=== PATIENT | female | born 1960 | race Caucasian/White ===

== ENCOUNTER 2017-10-20 16:02 | Emergency (ER) | payer BC ==
[2017-10-20 16:19] VITALS: BP 132/99
[2017-10-20] MEDS ORDERED: ADACEL TDaP IM ONE ×2 (16:47→16:51)
--- NOTE | 2017-10-20 16:48 | DR.GENAD ---
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 Landed on face with pain to rt face, rt ribs, rt wrist, L knee. Skin tear rt medial leg. Chief Complaint:: patient was walking aroung her fire place and she triped over a ailyn firedog causing a skin tear to her right lower leg. also land face first having right jaw pain, right rib and right wrist pain. - Source History Provided: Patient - Mode of Arrival Mode of Arrival: Wheelchair - Timing Onset of Chief Complaint: 10/20/17 PMH - PMH Past Medical History: Yes Past Medical History: Hypertension, Hypothyroidism Past Surgical History: Yes Surgical History: , Cholecystectomy, Hysterectomy - Family History History of Family Medical Conditions: No - Social History Does patient currently use any type of tobacco product: No Have you used tobacco products in the last 12 months: No Type of Tobacco Use: None Does any household member use tobacco: No Alcohol Use: Occasionally Do you use any recreational Drugs:: No Lives With: Family Lives Where: Home - infectious screening In the last 2 months have you had wt loss of >10#?: NO Have you had fever, night sweats or hemotysis?: No Have you traveled outside the country in the last 6 months?: No Isolation: Standard ROS - Review of Systems Constitutional: No Symptoms Reported Eyes: No Symptoms Reported ENTM: No Symptoms Reported, Nose Pain. negative: Loose Teeth Respiratoy: Other (rt rib pain on deep inspiration) Cardiovascular: No Symptoms Reported Gastrointestinal/Abdominal: No Symptoms Reported Genitourinary: No Symptoms Reported Neurological: No Symptoms Reported Musculoskeletal: Chest wall, Rib(s), Wrist, Knee Integumentary: Wound, Other (large C shaped lac rt leg, no active bleeding) Psychiatric: No Symptoms Reported All Other Systems: Reviewed and Negative PE - Vital Signs Vitals: Temperature 98.9 F Pulse Rate 79 Respiratory Rate 16 Blood Pressure 132/99 O2 Sat by Pulse Oximetry 96 - General Limitations: No Limitations General Appearance: Alert, In No Apparent Distress - Head Head Exam: Normal Inspection, Normocephalic - Eyes Eye exam: Normal Appearance, PERRL, EOMI, Other (tender along rt jawline. Speech clear, no palp deformity at joint ). negative: Nystagmus, Periorbital Swelling, Periorbital Tenderness - ENT ENT Exam: Other (no nasal bleeding) External Ear Exam: Normal External Inspection Nose Exam: Normal Nose Exam. negative: Nasal Deviation, Septal Hematoma, Laceration Mouth Exam: Normal Inspection. negative: Laceration Throat Exam: Normal Inspection - Neck Neck Exam: Normal Inspection, Full ROM, Trachea Midline - Chest Chest Inspection: Normal Inspection, Tenderness, Other (mid rt ribs tender) - Respiratory Respiratory Exam: Normal Lung Sounds Bilat Respiratory Exam: Bilateral Clear to Auscultation - Cardiovascular Cardiovascular Exam: Regular Rate, Normal Rhythm - Abdominal Exam Abdominal Exam: Normal Inspection, Normal Bowel Sounds, Soft. negative: Tenderness, Guarding, Rebound - Extremities Extremities Exam: Normal Inspection, Full ROM, Normal Capillary Refill, Other ( left knee, rt wrist both TTP with no palp bony deformity, both FROM. 7.5cm C shaped lac left leg, medio-lat aspect) - Neurologic Neurological Exam: Alert, Oriented X3 - Psychiatric Psychiatric Exam: Normal Affect, Normal Mood - Skin Skin Exam: Warm, Dry. negative: Intact (see above) Procedures - Laceration/Wound Repair Left Calf Wound's Depth, Shape: Superficial, Other (C shaped) Wound Explored: clean Betadine Prep?: Yes Volume Anesthetic (ccs): 4 Wound Debrided: moderate Wound Repaired With: sutures Suture Size/Type: 4:0, [place] Number of Sutures: 14 Layer Closure?: No Sterile Dressing Applied?: Yes Sling Applied?: No - Diagnosis Discharge Problem: Contusion, multiple sites, Laceration of leg - Discharge Plan Disposition: 01 HOME, SELF-CARE Condition: Stable Prescriptions: Ketorolac Tromethamine [Toradol Tab] 10 mg PO Q8H PRN #12 tab PRN Reason: Pain - Follow ups/Referrals Follow ups/Referrals: BELEN SIMMS [Primary Care Provider] - 3 days - Instructions Instructions: Wound Closure Removal, Laceration Care, Adult, [id number]
[2017-10-20] MEDS ORDERED: TORADOL 30 MG VIAL IM ONE (16:49)
[2017-10-20 17:08] VITALS: BMI 43.0
[2017-10-20] MEDS ORDERED: XYLOCAINE 1 % (PLAIN) ONE (17:44)
--- NOTE | 2017-10-20 17:44 | CT ---
HISTORY: Right jaw pain status post fall. Study: CT facial bones Comparison: None. Technique: Multiple axial images of the facial structures were obtained from the mandible to superior portions of the orbits. Dose reduction techniques including Automated Exposure Control (AEC) and ad justment of mA and kV were utilized. Findings: Soft tissue swelling is seen over the right anterior face. No significant fracture or dislocation. Th e visualized soft tissues are otherwise unremarkable. The visualized intracranial structures, orbits, and paranasal sinuses appear normal. The mastoid air cells are normal. IMPRESSION: No acute osseous abnormality. Reported By:
[2017-10-20] MEDS ORDERED: HYDROGEN PEROXIDE 3% ONE (17:48)
[2017-10-20] MEDS ORDERED: STERILE WATER IRRIGATION IR ONE (18:06)
--- NOTE | 2017-10-20 18:06 | RAD ---
HISTORY: Wrist pain status post fall. Study: Three views of the right wrist. Comparison: None. Findings: No acute cortical disruption or dislocation can be identified. No significant soft tissue swelling o r injury can be seen. IMPRESSION: No acute osseous abnormality. Reported By:
--- NOTE | 2017-10-20 18:06 | RAD ---
HISTORY: Pain after fall Study: Three views left knee Comparison: None Findings: Alignment is normal. No acute fracture dislocation identified. No effusion. IMPRESSION: 1. No acute process. Reported By:
--- NOTE | 2017-10-20 18:08 | RAD ---
HISTORY: Right rib pain status post fall. Study: 6 views of the ribs. Comparison: None. Findings: The trachea is midline. The cardiac silhouette is unremarkable. No obvious focal consolidation, ple ural effusion, or pneumothorax. No acute osseous abnormality. IMPRESSION: No acute osseous or cardiopulmonary disease. Reported By:
[2017-10-20] MEDS ORDERED: BACITRACIN ZINC ONE (18:22)
== END 2017-10-20 19:07 | disposition home or self-care (01) ==
LOC: ER 16:18
PROC: 0YQTXZZ Repair Right 3rd Toe, External Approach (ICD-10-PCS; principal; 2017-10-20)
DX: S81.819A Laceration without foreign body, unspecified lower leg, initial encounter (principal); T14.8XXA Other injury of unspecified body region, initial encounter; W19.XXXA Unspecified fall, initial encounter; Y92.009 Unspecified place in unspecified non-institutional (private) residence as the place of occurrence of the external cause
CPT/HCPCS: 12002; 70486; 71111; 73100; 73560; 90471; 99282; 99283; A4217; J2001

== ENCOUNTER → 2017-10-21 | Outpatient (CLI) | payer BC ==
[~2017-10-21] MED LIST: NS 100 ML IV 100 ML IV ONE
--- NOTE | 2017-10-21 11:05 | CT ---
CT OF THE ABDOMEN AND PELVIS WITH CONTRAST HISTORY: Periumbilical pain. Comparison: None Technique: Multiple axial images of the abdomen and pelvis were obtained from the lung bases to the pubic symphy sis follow the administration of IV contrast as well as oral contrast. Dose reduction techniques inc luding Automated Exposure Control (AEC) and adjustment of mA and kV were utlized. Findings: The heart is normal in size. There is no pericardial effusion. 5 mm right lower lobe pulmonary nodule on series 4, image 11. Liver and spleen are normal in size, enhancement characteristics and contour. No focal lesions. The p ortal vein is patent. No ductal dilitation. Gallbladder absent. The pancreas is unremarkable. Adrenal glands are normal. Kidneys enhance symmetrically without hydronephrosis or nephrolithiasis. No bowel obstruction or inflammation. Normal appendix. Diverticulosis without diverticulitis. No abno rmal appearing mesenteric or retroperitoneal lymph nodes. No free fluid or fluid collections. Very sm all fat containing umbilical hernia without evidence of inflammation. The bladder is normal in appearance. Uterus absent. No free fluid or abnormal pelvic lymph nodes. No aggressive osseous lesions. IMPRESSION: 1. No definite source of patient's abdominal pain is identified. 2. Tiny fat containing umbilical hernia. Reported By:
== END ==
LOC: RAD 08:18
PROVIDERS: ATTEND Nurse Practitioner Family
DX: R10.84 Generalized abdominal pain (principal); R10.33 Periumbilical pain; K42.9 Umbilical hernia without obstruction or gangrene
CPT/HCPCS: 74177; A4222

== ENCOUNTER → 2017-10-31 | Outpatient (CLI) | payer BC ==
[2017-10-20 16:19] VITALS: BP 132/99
--- NOTE | 2017-10-31 14:02 | CT ---
HISTORY: Abdominal/pelvic pain. Study: CT chest with contrast Comparison: None. Technique: Multiple axial images of the chest were obtained from the thoracic inlet to the upper abdo men after the administration of IV contrast. MIP images were obtained. Dose reduction techniques incl uding Automated Exposure Control (AEC) and adjustment of mA and kV were utilized. Findings: The mediastinum does not demonstrate significant pathological lymphadenopathy. There is no paracardi al effusion observed. The thoracic aorta is normal in its contour without evidence for aneurysmal di latation. The central pulmonary arterial system does not demonstrate central filling defects to sugg est pulmonary emboli. Pleural-based 4 mm right lower lobe pulmonary nodule (series 4, image 37). Calcified right lower lobe punctate pulmonary nodule consistent with old granulomatous disease. No other obvious pulmonary nodu les, mass, pleural effusion, focal consolidation, or pneumothorax. Bibasilar scarring versus atelecta sis. Diffuse fatty infiltration of the visualized liver. No obvious liver lesions. The gallbladder is surgically absent. Remaining upper abdominal structures demonstrate a normal contrast appearance. De generative changes of the spine. No aggressive osseous lesions. IMPRESSION: 1. No CT evidence of acute thoracic pathology or pulmonary embolus. 2. 4 mm right lower lobe pulmonary nodule. Recommend follow-up CT of the chest in 1 year to document stability. Reported By:
== END ==
LOC: RAD 09:33
PROVIDERS: ATTEND Nurse Practitioner Family
DX: R91.1 Solitary pulmonary nodule (principal); R93.8 Abnormal findings on diagnostic imaging of other specified body structures
CPT/HCPCS: 71260; A4222